=== PATIENT | female | born 1960 | race Caucasian/White ===

== ENCOUNTER → 2016-10-05 | Outpatient (CLI) | payer BC ==
--- NOTE | ~2016-10-05 | MY11 ---
[facility] A Service of [facility] RADIOLOGY TEXT RESULTS PATIENT: GENIE STOLL LOCATION: [facility] : 62 UNIT #: [id number] AGE: [address]: Ian Orellana SEX: F ORDER DR: [id number] [place] [id number] [facility]. [place], [place] [address] [id number] O MR#: [id number] Acc #: [id number] NAME: GENIE STOLL : 1960 SEX: F STUDY DATE/TIME: 10/05/2016 12:20 UNIT: [facility] ROOM: STUDY DESCRIPTION: MY Mammogram Screening Dig Ed Attending Physician: Ian Orellana M.D. Referring Physician: Ian Orellana M.D. Ordering Physician: Ian Orellana M.D. Primary Care Physician: Ian Orellana M.D. MEDICAL IMAGING REPORT This report is preliminary unless electronic signature is present EXAM Bilateral digital screening mammogram with CAD 10/05/2016 HISTORY 56-year-old female with no personal history of breast cancer. Patient has a positive family history of breast cancer. FINDINGS The background breast parenchyma consists of scattered fibroglandular densities. No suspicious mass, microcalcification, or architectural distortion. The exam is compared to prior mammogram dated 12/30/2011. IMPRESSION Negative mammogram. Patients over the age of 40 are entered into a reminder system with target due date for the next mammogram. A result letter will also be sent to the patient. BIRADS: 1 Negative RECOMMENDATIONS: Annual screening mammogram. Dictated by... Isaac Sherwood M.D. THIS IS AN ELECTRONICALLY VERIFIED REPORT Isaac Sherwood M.D. at 10/12/2016 5:15 PM ALFRED/allyssa TD: 10/12/2016 14:15 JOB #: [id number] [facility] A Service of [facility] RADIOLOGY TEXT RESULTS PATIENT: GENIE STOLL LOCATION: [facility] : 62 UNIT #: [id number] AGE: [address]: Ian Orellana SEX: F ORDER DR: MEDICAL IMAGING REPORT Page 1 of 1 COPY
--- NOTE | ~2016-10-05 | BD1 ---
[facility] A Service of [facility] RADIOLOGY TEXT RESULTS PATIENT: GENIE STOLL LOCATION: [facility] : 62 UNIT #: [id number] AGE: [address]: Ian Orellana SEX: F ORDER DR: [id number] [facility] [address] [place], [place] [address] [id number] O MR#: [id number] Acc #: [id number] NAME: GENIE STOLL : 1960 SEX: F STUDY DATE/TIME: 10/05/2016 12:31 UNIT: [facility] ROOM: STUDY DESCRIPTION: BD Dexa Bone Dens 1+ Site Attending Physician: Ian Orellana M.D. Referring Physician: Ian Orellana M.D. Ordering Physician: Ian Orelalna M.D. Primary Care Physician: Ian Orellana M.D. MEDICAL IMAGING REPORT This report is preliminary unless electronic signature is present EXAM DXA scan 10/05/2016. HISTORY Status post menopause with history of hormone replacement therapy beginning at age 40. Hysterectomy at age 40 with removal of both ovaries. Family history breast carcinoma in mother. FINDINGS Bone mineral density in the lumbar spine from L1-L4 is 1.043 g/cm2 which is 0 standard deviations from the mean when compared to the young adult reference population which is within the range of normal. This is 1.1 standard deviations above the mean when compared to the age-matched population. Bone mineral density in the left femoral neck was 0.852 g/cm2 which is 0 standard deviations from the mean when compared to the young adult reference population which is within the range of normal. This is 1.1 standard deviations above the mean when compared to the age-matched population. IMPRESSION Bone mineral density in the lumbar spine and left hip within the range of normal. Dictated by... Garrison Cruz M.D. THIS IS AN ELECTRONICALLY VERIFIED REPORT Garrison Cruz M.D. at 10/06/2016 8:27 AM NOAM/shannan TD: 10/05/2016 13:58 JOB #: [id number] [facility]. [facility] A Service of [facility] RADIOLOGY TEXT RESULTS PATIENT: GENIE STOLL [id number] 62 UNIT #: [id number] AGE: [address]: Ian Orellana SEX: F ORDER DR: MEDICAL IMAGING REPORT Page 1 of 1 COPY
== END | disposition home or self-care (01) ==
LOC: CWCC 11:59
DX: Z13.820 Encounter for screening for osteoporosis (principal); Z12.31 Encounter for screening mammogram for malignant neoplasm of breast; Z80.3 Family history of malignant neoplasm of breast; Z78.0 Asymptomatic menopausal state
CPT/HCPCS: 77080; G0202